=== PATIENT | male | born 1955 | race Caucasian/White ===

== ENCOUNTER 2024-03-21 09:09 | Outpatient (CLI) | payer MEDICARE ==
[2024-03-21] VITALS (16 sets, daily range): BP systolic 139–194; BP diastolic 87–100; PULSE 56–75; TEMP 97.7
[~2024-03-21] VITALS: Ht 180.3 cm; Wt 74.8 kg
[~2024-03-21 09:09] MED LIST: ALTACE 1.25MG1.25 MG PO; ASPIRIN E.C. 8181 MG PO; BRILINTA90 MG PO; EFFIENT10 MG PO; LIPITOR 40MG TA40 MG PO; LOPRESSOR 225 MG/TAB PO; NITROSTAT0.4 MG/TAB SL; NO HOME MEDICATIONS; NORCO 325 MG-51 TAB PO; TOPROL XL 50MG50 MG PO; ULTRAM 50MG TAB50 MG PO
[2024-03-21] MEDS ORDERED: LIPITOR 40MG TA40 MG PO (09:35)
[2024-03-21] MEDS ORDERED: TOPROL XL 50MG50 MG PO (09:36)
--- NOTE | 2024-03-21 10:15 | NUR ---
pt to ct per ambulation. Pt in prone position on ct table. Monitors applied and O2 on at 2l/nc.
[2024-03-21] MEDS ORDERED: Midazolam 2 MG/2 ML VIAL IV SCH (10:30)
[2024-03-21] MEDS ORDERED: fentaNYL 50 MCG/ML 2 ML VIAL IV SCH (10:30)
--- NOTE | 2024-03-21 10:30 | NUR ---
Dr Camacho into room and talking with pt.
--- NOTE | 2024-03-21 10:39 | NUR ---
Specimen obtained by Dr Medina and placed in formalin. Specimen labeled.
[2024-03-21] MEDS ORDERED: traMADol 50 MG TAB PO PRN (13:00)
--- NOTE | 2024-03-21 13:27 | NUR ---
Discharge instructions gien to pt.Pt verbalizes understanding.bandaid observed clean,dry,and intact.Pt escortedout via wheelchair by this nurse.
[2024-03-22] MEDS ORDERED: Atorvastatin 40 MG TAB PO SCH (09:00)
== END 2024-03-21 14:42 ==
LOC: COL.RAD 09:09
DX: R91.8 Other nonspecific abnormal finding of lung field (principal)
CPT/HCPCS: J2250; J3010

== ENCOUNTER 2024-04-09 17:19 | Emergency (ER) | payer MEDICARE ==
[~2024-04-09] VITALS: Ht 180.3 cm; Wt 75.0 kg
[2024-04-09 17:28] VITALS: TEMP 97.8
[2024-04-09] MEDS ORDERED: Heparin/D5W 250 ML IV SCH (18:00)
[2024-04-09] MEDS ORDERED: Heparin 5,000 UNITS/ML 1 ML VIAL IV ONE (18:00)
[2024-04-09] MEDS ORDERED: NS 1,000 ML IV ONE (18:00)
[2024-04-09] MEDS ORDERED: Heparin 5,000 UNITS/ML 1 ML VIAL IV PRN (18:00)
[2024-04-09] MEDS ORDERED: dilTIAZem 25 MG/5 ML VIAL IV ONE (18:15)
[2024-04-09 19:10] LABS: BASO % 0.2 % (0.0-2.0); EOS % 0.1 % (0.0-4.0); GRAN # 11.2 K/mm3 (1.4-6.5); GRAN % 81.5 % (42.2-75.2); HEMATOCRIT 45.3 % (42.0-52.0); LYMPH # 1.1 K/mm3 (1.2-3.4); LYMPH % 8.3 % (20.0-51.0); MEAN CELL VOLUME 97 fl (80.0-100.0); MEAN CORPUSCULAR HEMOGLOBIN 32 pg (27-31); MEAN CORPUSCULAR HGB CONC 33 g/dl (33.0-37.0); MEAN PLATELET VOLUME 10.6 fl (7.4-10.4); MONO # 1.3 K/mm3 (0.1-0.6); MONO % 9.5 % (1.7-9.3); PLATELET COUNT 231 K/mm3 (130-400); RED BLOOD COUNT 4.67 M/mm3 (4.20-5.60); REDCELL DISTRIBUTION WIDTH-CV 14.4 % (11.5-14.5)
[2024-04-09 19:18] LABS: INR 1.2 (0.8-3.0); PROTHROMBIN TIME 13.2 SECONDS (9.7-12.8)
[2024-04-09 19:20] LABS: PARTIAL THROMBOPLASTIN TIME 33.2 SECONDS (26.0-37.0)
[2024-04-09 19:26] LABS: ALBUMIN 3.2 g/dL (3.4-4.8); BILIRUBIN,TOTAL 0.4 mg/dL (0.2-1.2); CALCIUM 11.7 mg/dL (8.4-10.2); CREATININE, serum 0.85 mg/dL (0.72-1.25); MAGNESIUM 1.8 mg/dL (1.6-2.6); POTASSIUM 5.1 mEq/L (3.5-4.5); TOTAL PROTEIN 7.8 g/dl (6.2-8.1)
[2024-04-09 19:32] LABS: TROPONIN-I 0.028 ng/mL (0.00-0.033)
[2024-04-09] MEDS ORDERED: Sodium Zirconium Cyclosilicate for Oral Susp 10 GM PACKET PO ONE (20:00)
[2024-04-09] MEDS ORDERED: Sodium Bicarbonate 8.4% 50 MEQ/50 ML SYRINGE IV ONE (20:00)
[2024-04-09] MEDS ORDERED: Patiromer 8.4 G Oral Susp **** subs to Sodium Zirconium Cyclosilicate 10 G Oral Susp PO ONE (20:00)
[2024-04-09] MEDS ORDERED: HYDROcodone/Acetaminophen 7.5-325 MG TAB PO ONE (20:15)
[2024-04-09] MEDS ORDERED: ELIQUIS 5MG PO (21:25)
[2024-04-09] MEDS ORDERED: Apixaban 5 MG TABLET PO ONE (21:30)
[2024-04-09 21:36] VITALS: BP 149/95; PULSE 60
== END 2024-04-09 21:36 | disposition home or self-care (01) ==
LOC: COL.ER 17:19
PROVIDERS: Family Medicine
DX: I48.92 Unspecified atrial flutter (principal); C79.51 Secondary malignant neoplasm of bone; Z79.891 Long term (current) use of opiate analgesic
CPT/HCPCS: A9270

== ENCOUNTER 2024-04-30 11:53 | Inpatient (IN) | payer MEDICARE ==
[~2024-04-30] VITALS: Ht 177.8 cm; Wt 64.5 kg
[2024-04-30] VITALS (427 sets, daily range): BP systolic 88–123; BP diastolic 69–86; PULSE 50–55; TEMP 97.8–98.8; O2SAT 72–100
[~2024-04-30 11:53] MED LIST changes: +ELIQUIS 5MG PO; +TOPROL XL 25MG25 MG PO
[2024-04-30] MEDS ORDERED: NS 500 ML IV ONE ×2 (12:15→13:15)
[2024-04-30] MEDS ORDERED: Amiodarone 450 MG in D5W Excel 250 ML IV SCH ×2 (12:21→16:15)
[2024-04-30 12:30] LABS: HEMATOCRIT 45.3 % (42.0-52.0); HEMOGLOBIN 15.1 g/dl (13.5-18.0); MEAN CELL VOLUME 96 fl (80.0-100.0); MEAN CORPUSCULAR HEMOGLOBIN 32 pg (27-31); MEAN CORPUSCULAR HGB CONC 33 g/dl (33.0-37.0); MEAN PLATELET VOLUME 10.2 fl (7.4-10.4); PLATELET COUNT 152 K/mm3 (130-400); REDCELL DISTRIBUTION WIDTH-CV 15.2 % (11.5-14.5)
[2024-04-30 12:47] LABS: BAND 2 % (0-10); EOSINOPHIL 1 % (0-4); LYMPHOCYTE 5 % (20.0-51.0); NEUTROPHILS 87 % (42.0-75.2); PLATELET ESTIMATE NORMAL (NORMAL)
[2024-04-30 12:49] LABS: ALBUMIN 3.1 g/dL (3.4-4.8); BILIRUBIN,TOTAL 0.6 mg/dL (0.2-1.2); CALCIUM 9.5 mg/dL (8.4-10.2); CREATININE, serum 0.98 mg/dL (0.72-1.25); POTASSIUM 4.6 mEq/L (3.5-4.5); TOTAL PROTEIN 6.1 g/dl (6.2-8.1)
[2024-04-30 13:07] LABS: TROPONIN-I 0.155 ng/mL (0.00-0.033)
[2024-04-30 13:14] LABS: INR 1.3 (0.8-3.0); PROTHROMBIN TIME 14.5 SECONDS (9.7-12.8)
[2024-04-30] MEDS ORDERED: Heparin 5,000 UNITS/ML 1 ML VIAL IV ONE (13:15)
[2024-04-30] MEDS ORDERED: Heparin/D5W 250 ML IV SCH (13:15)
[2024-04-30] MEDS ORDERED: Heparin 5,000 UNITS/ML 1 ML VIAL IV PRN (13:15)
[2024-04-30 13:17] LABS: PARTIAL THROMBOPLASTIN TIME 26.7 SECONDS (26.0-37.0)
[2024-04-30] MEDS ORDERED: oxyCODONE 5 MG TAB PO PRN (16:15)
[2024-04-30] MEDS ORDERED: Acetaminophen 500 MG TAB PO SCH (16:15)
[2024-04-30] MEDS ORDERED: Ondansetron 4 MG/2 ML VIAL IV PRN (16:15)
[2024-04-30] MEDS ORDERED: Polyethylene Glycol 3350 17 GM PDS PO PRN (16:15)
[2024-04-30] MEDS ORDERED: Iohexol 300 - 100 ML VIAL IV ONE (18:24)
[2024-04-30] MEDS ORDERED: NS 100 ML IV ONE (18:25)
[2024-04-30] MEDS ORDERED: HYDROmorphone 0.5 MG/0.5 ML SYRINGE IV ONE (22:00)
[2024-05-01] VITALS (642 sets, daily range): BP systolic 117–130; BP diastolic 43–89; PULSE 46–49; TEMP 97.8–98; O2SAT 61–99
[2024-05-01 05:28] LABS: BASO % 0.2 % (0.0-2.0); GRAN # 5.5 K/mm3 (1.4-6.5); GRAN % 88.5 % (42.2-75.2); HEMATOCRIT 39.3 % (42.0-52.0); HEMOGLOBIN 13.6 g/dl (13.5-18.0); LYMPH # 0.3 K/mm3 (1.2-3.4); MEAN CELL VOLUME 94 fl (80.0-100.0); MEAN CORPUSCULAR HEMOGLOBIN 33 pg (27-31); MEAN CORPUSCULAR HGB CONC 35 g/dl (33.0-37.0); MEAN PLATELET VOLUME 10.5 fl (7.4-10.4); MONO # 0.4 K/mm3 (0.1-0.6); MONO % 5.8 % (1.7-9.3); PLATELET COUNT 124 K/mm3 (130-400); RED BLOOD COUNT 4.19 M/mm3 (4.20-5.60)
[2024-05-01 05:49] LABS: ALBUMIN 2.9 g/dL (3.4-4.8); BILIRUBIN,TOTAL 0.7 mg/dL (0.2-1.2); CALCIUM 8.9 mg/dL (8.4-10.2); CREATININE, serum 0.72 mg/dL (0.72-1.25); POTASSIUM 4.4 mEq/L (3.5-4.5); TOTAL PROTEIN 5.7 g/dl (6.2-8.1)
[2024-05-01 06:10] LABS: TSH w REFLEX 1.888 uIU/mL (0.350-4.940)
--- NOTE | 2024-05-01 07:00 | NUR ---
REPORT RECEIVED FROM APRIL KAMINSKI. PT RESTING IN BED, VSS ON 1L O2 PER NC. HEPARIN AND AMIO INFUSING ORDERED TO PERIPHERAL IV'S. PT DENIES NEEDS AT THIS TIME, CALL LIGHT IN REACH.
[2024-05-01] MEDS ORDERED: Atorvastatin 40 MG TAB PO SCH (09:00)
[2024-05-01] MEDS ORDERED: Influenza Virus Vaccine, Hi-Dose Triv '24-25 (65 YR+) 0.5 ML SYRINGE IM SCH (09:00)
--- NOTE | 2024-05-01 10:33 | NUR ---
RAMON and RAMON Reynolds met with patient to complete initial assessment for discharge planning. Patient verified that he lives in [place] alone, is normally independent with activities and uses no DME. He lists his daughter Sabina Pineda ([phone]) and son Gonzalez Conroy ([phone]) as his contacts. Patient states he has a DPOA completed listing the above children and his son Joseph as DPOA agents. Patient sees Dr. Squires as his PCP and uses [facility] pharmacy without difficulty. Patient has just completed radiation last week and was scheduled to start another treatment course today. Patient voiced anxiety related to not being able to start therapy. Plan at this time is for patient to return home at discharge. RAMON spoke with APRIL Arias who states she will contact Dr. Garcia's office regarding patient's new treatment. Discharge plan: Home
[2024-05-01] MEDS ORDERED: Apixaban 5 MG TABLET PO SCH (10:45)
[2024-05-01] MEDS ORDERED: Amiodarone 200 MG TAB PO SCH (10:45)
[2024-05-01] MEDS ORDERED: ELIQUIS 5MG PO (12:02)
[2024-05-01] MEDS ORDERED: PACERONE400 MG PO (12:02)
--- NOTE | 2024-05-01 13:14 | NUR ---
PT GIVEN DISCHARGE PACKET, ALL PRESCRIPTIONS AND INSTRUCTIONS REVIEWED W/ PT AND SIGNIFICANT OTHER. PT DC'D VIA WC IN STABLE CONDITION.
== END 2024-05-01 13:14 | disposition home or self-care (01) | DRG 309 ==
LOC: COL.ER 11:53 → ICU 13:58
PROVIDERS: Nurse Practitioner; ADMIT Internal Medicine
PROC: 5A2204Z Restoration of Cardiac Rhythm, Single (ICD-10-PCS; principal; 2024-04-30)
DX: I48.92 Unspecified atrial flutter (principal); C34.90 Malignant neoplasm of unspecified part of unspecified bronchus or lung; I10 Essential (primary) hypertension; E78.00 Pure hypercholesterolemia, unspecified; I25.10 Atherosclerotic heart disease of native coronary artery without angina pectoris; I48.91 Unspecified atrial fibrillation; R53.81 Other malaise; R79.89 Other specified abnormal findings of blood chemistry; I95.9 Hypotension, unspecified; Z87.891 Personal history of nicotine dependence; I25.2 Old myocardial infarction; Z79.82 Long term (current) use of aspirin; Z95.5 Presence of coronary angioplasty implant and graft; Z79.01 Long term (current) use of anticoagulants; Z79.899 Other long term (current) drug therapy; Z68.20 Body mass index [BMI] 20.0-20.9, adult; Z92.3 Personal history of irradiation
CPT/HCPCS: J0282; J1170; J1644; J2704; J7040; J7060; Q9967

== ENCOUNTER 2024-05-12 13:31 | Inpatient (IN) | payer MEDICARE ==
[~2024-05-12] VITALS: Ht 177.8 cm; Wt 74.3 kg
[~2024-05-12 13:31] MED LIST changes: +PACERONE400 MG PO
[2024-05-12 13:58] LABS: BASO % 0.4 % (0.0-2.0); EOS % 0.2 % (0.0-4.0); GRAN % 87.5 % (42.2-75.2); HEMATOCRIT 42.9 % (42.0-52.0); HEMOGLOBIN 14.8 g/dl (13.5-18.0); LYMPH # 0.2 K/mm3 (1.2-3.4); MEAN CELL VOLUME 94 fl (80.0-100.0); MEAN CORPUSCULAR HEMOGLOBIN 32 pg (27-31); MEAN CORPUSCULAR HGB CONC 35 g/dl (33.0-37.0); MEAN PLATELET VOLUME 9.7 fl (7.4-10.4); MONO # 0.5 K/mm3 (0.1-0.6); MONO % 8.5 % (1.7-9.3); PLATELET COUNT 208 K/mm3 (130-400); RED BLOOD COUNT 4.59 M/mm3 (4.20-5.60); REDCELL DISTRIBUTION WIDTH-CV 15.7 % (11.5-14.5)
[2024-05-12] MEDS ORDERED: Morphine 4 MG/ML VIAL IV ONE (14:00)
[2024-05-12] MEDS ORDERED: Ondansetron 4 MG/2 ML VIAL IV ONE (14:00)
[2024-05-12] MEDS ORDERED: NS 1,000 ML IV ONE (14:00)
[2024-05-12] MEDS ORDERED: Lidocaine 2% Viscous 15 ML UNIT DOSE MM ONE (14:00)
[2024-05-12 14:20] LABS: ALBUMIN 2.6 g/dL (3.4-4.8); BILIRUBIN,TOTAL 0.6 mg/dL (0.2-1.2); CALCIUM 9.3 mg/dL (8.4-10.2); CREATININE, serum 0.7 mg/dL (0.72-1.25)
[2024-05-12] MEDS ORDERED: Iohexol 300 - 100 ML VIAL IV ONE (15:46)
[2024-05-12] MEDS ORDERED: NS 100 ML IV SCH (15:47)
--- NOTE | 2024-05-12 16:30 | NUR ---
VITO ARRIVED TO UNIT AWAKE AND ALERT, ON 2LNC. PATIENT RATING HIS PAIN CURRENTLY 2/3 OUT OF 10, TO GENERALIZED BODY. PATIENT STATED HE HAS BEEN HAVIGN ISSUES SWALLOWING DUE TO PAIN. PATIENTS DAUGHTER AND SON AT BEDSIDE. CALL LIGHT WITHIN REACH. BED ALARM ON. MED REC COMPLETED WITH MADINA AND HIS TWO CHILDREN.
[2024-05-12 17:20] VITALS: BP_SYST 152
[2024-05-12] MEDS ORDERED: Pantoprazole 40 MG in NS 10 ML IV SCH (17:21)
[2024-05-12] MEDS ORDERED: Sucralfate Susp 1 GM/10 ML UD PO SCH (17:25)
[2024-05-12] MEDS ORDERED: LR 1,000 ML IV SCH (17:30)
[2024-05-12] MEDS ORDERED: Docusate Sodium 100 MG CAP PO PRN (17:30)
[2024-05-12] MEDS ORDERED: Polyethylene Glycol 3350 17 GM PDS PO PRN (17:30)
[2024-05-12] MEDS ORDERED: Morphine 4 MG/ML VIAL IV PRN (17:30)
[2024-05-12] MEDS ORDERED: Acetaminophen 325 MG TAB PO PRN (17:30)
[2024-05-12] MEDS ORDERED: Ondansetron 4 MG/2 ML VIAL IV PRN (17:30)
[2024-05-12] MEDS ORDERED: Lidocaine 2% Viscous 15 ML UNIT DOSE MM PRN (17:30)
[2024-05-12] MEDS ORDERED: hydrALAZINE 20 MG/ML 1 ML VIAL IV PRN (17:45)
--- NOTE | 2024-05-12 18:05 | NUR ---
FENTANYL PATCH TO L SHOULDER VERIFIED BY THIS RN AND APRIL Fuller FENTANYL PATCH STRENGTH OF 50MCG, AND PER PATIENT WAS PLACED TODAY AT 12PM.
[2024-05-12] MEDS ORDERED: KEYTRUDA25 MG/ML IV (20:11)
[2024-05-12 20:13] VITALS: BP 148/84; PULSE 52; TEMP 97.9
[2024-05-12] MEDS ORDERED: FENTANYL 50MCG TD (20:14)
--- NOTE | 2024-05-12 20:16 | NUR ---
MD MADE AWARE OF FENTANYL PATCH TO PATIENTS LEFT SHOULDER, PER PHYSICIAN WE CAN RESUME THIS FOR NOW.
[2024-05-12 20:30] VITALS: BP_SYST 148
--- NOTE | 2024-05-12 23:33 | NUR ---
Patient assessed around 2029. Alert and oriented, and able to make needs known. Denies having pain and discomfort. Peripheral INT to right AC, IV to left forearm with IV fluids running per orders. Reports SOB with exertion. On oxygen at 2 L/min via NC. LS coarse crackles. HRR-sinus rikki on telemetry. BSAx4. Has Fentanyl patch to left delt. Voices no questions, needs, or concerns at this time. In bed with call light within reach.
[2024-05-13] VITALS (12 sets, daily range): BP systolic 129–168; BP diastolic 78–94; PULSE 49–56; TEMP 97.7–98.1
--- NOTE | 2024-05-13 04:54 | NUR ---
68 yo male admitted with odynophagia/esophagitis as well as concerns for acute respiratory failure, possible sepsis from a pulmonary source. ht 177.8 cm wt 64.5 kg SCr 0.7 with estimated CrCl >60 ml/min half life 8.5 hours Plan: Patient received an initial loading dose of vancomycin 1000 mg x1 in the ED; will give a supplemental loading dose of vancomycin 500 mg for a total loading dose of 1500 mg (23.2 mg/kg);followed by a maintenance regimen of vancomycin 1250 mg q12h to target a goal trough of 15-20 mcg/ml. Will follow patient's renal function, micro data, and vancomycin levels as indicated to assess for any necessary changes to the regimen. Thank you for this dosing consult.
[2024-05-13] MEDS ORDERED: Vancomycin 1.25 GM,Special Dose/Pharmacy Prepared 1.25 GM in NS 250 ML IV SCH ×2 (05:00→08:00)
--- NOTE | 2024-05-13 06:00 | NUR ---
Patient given Lidocaine swish and swallow once this shift as requested. Has denied wanting any other pain medication. Continues on IV fluids and ABX per orders. Voices no questions, needs, or concerns at this time. Remains on oxygen at 2 L/min via NC. In bed with call light within reach.
[2024-05-13 06:13] LABS: BASO % 0.4 % (0.0-2.0); EOS % 0.6 % (0.0-4.0); GRAN # 4.1 K/mm3 (1.4-6.5); GRAN % 88.8 % (42.2-75.2); HEMATOCRIT 37.4 % (42.0-52.0); LYMPH # 0.1 K/mm3 (1.2-3.4); LYMPH % 2.1 % (20.0-51.0); MEAN CELL VOLUME 96 fl (80.0-100.0); MEAN CORPUSCULAR HEMOGLOBIN 32 pg (27-31); MEAN CORPUSCULAR HGB CONC 33 g/dl (33.0-37.0); MEAN PLATELET VOLUME 9.6 fl (7.4-10.4); MONO # 0.4 K/mm3 (0.1-0.6); MONO % 7.7 % (1.7-9.3); PLATELET COUNT 186 K/mm3 (130-400); RED BLOOD COUNT 3.91 M/mm3 (4.20-5.60)
[2024-05-13 06:20] LABS: HEMOGLOBIN 12.4 g/dl (13.5-18.0)
[2024-05-13 06:31] LABS: CALCIUM 8.5 mg/dL (8.4-10.2); CREATININE, serum 0.61 mg/dL (0.72-1.25); POTASSIUM 3.8 mEq/L (3.5-4.5)
[2024-05-13] MEDS ORDERED: Amiodarone 200 MG TAB PO SCH (09:00)
--- NOTE | 2024-05-13 09:21 | NUR ---
pick and shovel worker met with pt to discuss discharge planning. He reports to live alone in [place]. He sees Dr. Squires for PCP needs and obtains medications from [facility] with no difficulties. He verified to have Medicare A/B and [employer] insurance. He reports to be independent with ADLS and uses no DME. He reports his daughter, Sabina [phone] is his DPOA-HC along with his son and daughter has a copy. Pt's partner later arrived and had no questions for SW. PT/OT Pending Discharge Plan: home likely
[2024-05-13] MEDS ORDERED: Fluconazole 400 MG/200 ML IV SOLN IV ONE (10:00)
--- NOTE | 2024-05-13 21:25 | NUR ---
PATIENT RESTING IN BED WATCHING TV. REPORTS NERVE LANRE IN BOTH ARMS. DENIES ANY NAUSEA OR VOMITING. CONINUES O HAVE COUGH WITH THICK WHITE SPUTUM. CALL LIGHT WITHIN REACH. BED IS LOCKED AND IN LOW POSITION
[2024-05-14] VITALS (12 sets, daily range): BP systolic 145–164; BP diastolic 83–96; PULSE 46–50; TEMP 97.6–98.3
[2024-05-14 06:26] LABS: BASO % 0.2 % (0.0-2.0); EOS % 0.5 % (0.0-4.0); GRAN # 4.8 K/mm3 (1.4-6.5); HEMATOCRIT 39.4 % (42.0-52.0); HEMOGLOBIN 13.2 g/dl (13.5-18.0); LYMPH # 0.2 K/mm3 (1.2-3.4); LYMPH % 2.8 % (20.0-51.0); MEAN CELL VOLUME 94 fl (80.0-100.0); MEAN CORPUSCULAR HEMOGLOBIN 32 pg (27-31); MEAN CORPUSCULAR HGB CONC 34 g/dl (33.0-37.0); MEAN PLATELET VOLUME 9.3 fl (7.4-10.4); MONO # 0.6 K/mm3 (0.1-0.6); MONO % 9.8 % (1.7-9.3); PLATELET COUNT 175 K/mm3 (130-400); RED BLOOD COUNT 4.18 M/mm3 (4.20-5.60); REDCELL DISTRIBUTION WIDTH-CV 15.8 % (11.5-14.5)
[2024-05-14 06:44] LABS: CALCIUM 8.7 mg/dL (8.4-10.2); CREATININE, serum 0.8 mg/dL (0.72-1.25); POTASSIUM 3.7 mEq/L (3.5-4.5)
--- NOTE | 2024-05-14 08:10 | NUR ---
PATIENT ALERT AND ORIENTED X4. REPORTS PAIN 4/10 TO BACK REFUSES PAIN MEDICATION AT THIS TIME. PATIENT ON 4L /. PATIENT IV TO RIGHT AC WAS DISCONTINUED AND NEW IV PLACED TO RIGHT LEFT AC. PATIENT TELEMETRY INPLACE. PATIENT ASSISTED TO BATH BY THIS NURSE AND EDUCATIONAL ADVISOR. PATIENT MEPILEX PLACED ON RIGHT ELBOW.PATIENT DENIES ANY FURTHER NEEDS AT THIS TIME. CALL LIGHT WITHIN REACH. BED AT LOWEST POSITION. BED ALARM ON.
[2024-05-14] MEDS ORDERED: Fluconazole 200 MG/100 ML IV SOLN IV SCH (09:00)
--- NOTE | 2024-05-14 10:17 | NUR ---
RAMON met with pt, his son, and mickey Velasco to discuss PT/OT reccomendations. RAMON provided Medicare.gov list of SNF and Home Health options. He reports to want to go home with HH as his three children live nearby. RAMON urged him to call once they review the list and decide. Family inquired about d/c date and RAMON informed him the provider will be around shortly. Discharge Plan: home with HH- TBD
--- NOTE | 2024-05-14 13:00 | NUR ---
PATIENT CALORIE INTAKE FOR THIS MORNING AND LUNCH WAS APPROX. 301. CONSISTING OF INTAKE OF COFFEE WITH CREAMER, SUGAR, ORANGE JUICE, EGGS.
--- NOTE | 2024-05-14 13:06 | NUR ---
HOSPITALIST DR. BARBOUR NOTIFIED OF PATIENT INCREASE WORK OF BREATHING AND RESPITATION RATE INCREASE. DR. BARBOUR ORDERED THIS NURSE TO PLACE ABG ORDER AND NOTIFIED RESPIRATORY DON OF THIS ORDER.
[2024-05-14 13:38] LABS: ARTERIAL BLD GAS O2 SATURATION 94.3 % (92-100); ARTERIAL BLD GAS TCO2 CT 28.9; ARTERIAL BLOOD GAS BASE EXCESS 2.6 (-2-2); ARTERIAL BLOOD GAS HCO3 27.6 meq/L (22-26); ARTERIAL BLOOD GAS PCO2 43.8 mmHg (35-45); ARTERIAL BLOOD GAS PO2 70.2 mmHg (80-100); ARTERIAL BLOOD GAS pH 7.42 (7.35-7.45)
--- NOTE | 2024-05-14 18:00 | NUR ---
PATIENT IS HAVING POOR APPETITE THROUGHOUT SHIFT. PATIENT CALORIE INTAKE FOR THIS DAY SHIFT IS APPROX. 400 APOORVA WHICH CONSISTED OF SOME CEREAL WITH MILK, CHOCOLATE MILK, ESTONIAN ICE X2. AND SOME BITES OF FOOD FROM MEALS. THIS NURSE ENCOURAGE PATIENT ORAL INTAKE AND PATIENT EDUCATED ON ORAL INTAKE.
--- NOTE | 2024-05-14 19:45 | NUR ---
Patient resting in bed. Rates pain at 5/10, states this is normal for him. Needs met. Assessment complete. IV in left forearm and AC infusing without complications. Patient on 4L NC. Call light and personal items in reach. Bed in low position and bed alarm on.
[2024-05-15] VITALS (14 sets, daily range): BP systolic 141–163; BP diastolic 77–89; PULSE 45–61; TEMP 97.5–98.2
[2024-05-15 07:07] LABS: BASO % 0.2 % (0.0-2.0); EOS % 0.6 % (0.0-4.0); GRAN # 4.2 K/mm3 (1.4-6.5); GRAN % 84.7 % (42.2-75.2); HEMATOCRIT 37.2 % (42.0-52.0); HEMOGLOBIN 12.6 g/dl (13.5-18.0); LYMPH # 0.2 K/mm3 (1.2-3.4); LYMPH % 3.9 % (20.0-51.0); MEAN CELL VOLUME 95 fl (80.0-100.0); MEAN CORPUSCULAR HEMOGLOBIN 32 pg (27-31); MEAN CORPUSCULAR HGB CONC 34 g/dl (33.0-37.0); MEAN PLATELET VOLUME 10.2 fl (7.4-10.4); MONO # 0.5 K/mm3 (0.1-0.6); MONO % 9.8 % (1.7-9.3); PLATELET COUNT 181 K/mm3 (130-400); RED BLOOD COUNT 3.91 M/mm3 (4.20-5.60)
[2024-05-15 07:12] LABS: CALCIUM 8.5 mg/dL (8.4-10.2); CREATININE, serum 1.52 mg/dL (0.72-1.25); POTASSIUM 3.6 mEq/L (3.5-4.5)
--- NOTE | 2024-05-15 07:28 | NUR ---
DR. BENITEZ NOTIFIED OF CRITICAL LAB VALUE. PROVIDER VERBALIZED TO NOTIFY PHARMACY OF VANCO TROUGH. VANCO TROUGH WAS NOTIFIED TO PHARMACIST KAREEM,PHARMACIST VERBALIZED TO HOLD MORNING DOSE.
--- NOTE | 2024-05-15 08:00 | NUR ---
PATIENT ALERT AND ORIENTED X4.ON 3L 02/, TELEMETRY INPLACE. FLUIDS AND ANTIBIOTICS INFUSING PER DOCTORS ORDER. PATIENT DENIES PAIN THIS MORNING. PATIENT ASSISTED TO BATHROOM AND BACK TO BED.PATIENT BREAKFAST ORDERED. PATIENT DENIES ANY OTHER NEEDS AT THIS TIME. CALL LIGHT WITHIN REACH. BED ALARM ON.
[2024-05-15] MEDS ORDERED: fentaNYL Patch Removal/Drugbuster TD SCH (09:00)
[2024-05-15] MEDS ORDERED: fentaNYL 50 MCG 72 HR PATCH TD SCH (09:00)
--- NOTE | 2024-05-15 10:15 | NUR ---
Initial visit; A very soft-spoken, nice gentleman made several slightly humerous statements while Direct Marketing Executive was letting him know of her avaialbility and offer to help. Brian agrees to let all of us know if he has any needs while he is here with us. He has family support with him and they will also keep us posted of his needs.
--- NOTE | 2024-05-15 14:59 | NUR ---
Data Officer met with patient and his daughter, Amy to discuss Home Health and services included. Amy advised she is going to speak with some friends in healthcare about their HH recommendations and will call SW with what agency they decide on.
--- NOTE | 2024-05-15 17:58 | NUR ---
patient intake today was poor. patient educated on diet and offered multiple times snacks and things to eat but patient refused. patient had a few bites of breakfast, milk, and some drinks of drink brought by family. patient had a sprite and some orange juice, coffee with creamer.
--- NOTE | 2024-05-15 20:30 | NUR ---
Patient calorie count for dinner is 489.
--- NOTE | 2024-05-15 21:40 | NUR ---
Patient resting in bed. Rates pain at 5/10, denies need for any pain meds. Assissted patient to bathroom and back to bed. Assessment compelte. IV in left forearm and AC infusing without complications. Dressing to right elbow saturated, dressing changed. Call light and personal items in reach. Bed in low position and bed alarm on.
[2024-05-16] VITALS (13 sets, daily range): BP systolic 146–169; BP diastolic 83–94; PULSE 6–50; TEMP 97.5–97.9
[2024-05-16 06:38] LABS: BASO % 0.2 % (0.0-2.0); EOS % 0.9 % (0.0-4.0); GRAN # 3.8 K/mm3 (1.4-6.5); GRAN % 81.6 % (42.2-75.2); HEMATOCRIT 37.9 % (42.0-52.0); LYMPH # 0.3 K/mm3 (1.2-3.4); LYMPH % 5.4 % (20.0-51.0); MEAN CELL VOLUME 94 fl (80.0-100.0); MEAN CORPUSCULAR HEMOGLOBIN 32 pg (27-31); MEAN CORPUSCULAR HGB CONC 34 g/dl (33.0-37.0); MEAN PLATELET VOLUME 10.1 fl (7.4-10.4); MONO # 0.5 K/mm3 (0.1-0.6); PLATELET COUNT 176 K/mm3 (130-400); RED BLOOD COUNT 4.04 M/mm3 (4.20-5.60); REDCELL DISTRIBUTION WIDTH-CV 16.1 % (11.5-14.5)
[2024-05-16 06:54] LABS: CALCIUM 8.5 mg/dL (8.4-10.2); CREATININE, serum 1.61 mg/dL (0.72-1.25); POTASSIUM 3.4 mEq/L (3.5-4.5)
--- NOTE | 2024-05-16 07:30 | NUR ---
Bedside report received from APRIL Craft. Pt resting in bed with eyes closed and no complaints. Call light within reach.
--- NOTE | 2024-05-16 09:10 | NUR ---
Pt awake in bed with no complaints. Shift assessment completed. VSS with O2 in place via NC. No irritation to bilateral nares noted. Edema noted in shift assessment. Pt denies pain rating 0/10. IVF infusing into Lt AC with no complications. Zosyn infusing into Lt forearm as ordered with no complications. Telmetry in place. Pt ambulates to bathroom and back to bed x1 assist with no complications. NPO status in place. Pt has no request at this time. Call light within reach and fall precautions in place.
--- NOTE | 2024-05-16 09:12 | NUR ---
Fentanyl patch to RUE in place as ordered.
[2024-05-16] MEDS ORDERED: *Potassium Replacement Protocol MC SCH (10:45)
[2024-05-16] MEDS ORDERED: Potassium Chloride 100 ML IV SCH ×2 (10:45→17:15)
--- NOTE | 2024-05-16 15:10 | NUR ---
Kick Press Setter met with patient and family at bedside to check in. Patient will have feeding tube placed tomorrow. SW explained that she would order supplies from [facility] and patient verbalized understanding. Patient advised his daughter, Sabina is still working on a decision for .
--- NOTE | 2024-05-16 21:40 | NUR ---
Patient resting in bed. Rates pain at 5/10, denies any need for pain meds. Assisted patient to bathroom and back to bed. Needs met. Assessment complete. IV in right forearm flushes easily without complications. IV in right AC infusing without complications. Call light and personal items in reach. Bed in low position and bed alarm on.
[2024-05-17] VITALS (12 sets, daily range): BP systolic 147–171; BP diastolic 83–900; PULSE 49–61; TEMP 97.8–98.1
--- NOTE | 2024-05-17 07:22 | NUR ---
0715 - Spoke to patients nurse Livier this morning. Patient is not having surgery and no longer needs a PICC line. PICC order cancelled.
--- NOTE | 2024-05-17 07:29 | NUR ---
Bedside report received from APRIL Craft. Pt awake in bed with no complaints. Fentanyl patch to RUE verified with APRIL Craft. Call light within reach.
[2024-05-17 10:50] LABS: BASO % 0.1 % (0.0-2.0); EOS % 0.1 % (0.0-4.0); GRAN # 6.6 K/mm3 (1.4-6.5); GRAN % 88.7 % (42.2-75.2); HEMATOCRIT 45.5 % (42.0-52.0); LYMPH # 0.3 K/mm3 (1.2-3.4); LYMPH % 3.6 % (20.0-51.0); MEAN CELL VOLUME 94 fl (80.0-100.0); MEAN CORPUSCULAR HEMOGLOBIN 32 pg (27-31); MEAN CORPUSCULAR HGB CONC 34 g/dl (33.0-37.0); MEAN PLATELET VOLUME 9.8 fl (7.4-10.4); MONO # 0.5 K/mm3 (0.1-0.6); MONO % 6.2 % (1.7-9.3); PLATELET COUNT 223 K/mm3 (130-400); RED BLOOD COUNT 4.82 M/mm3 (4.20-5.60); REDCELL DISTRIBUTION WIDTH-CV 16.3 % (11.5-14.5)
[2024-05-17 11:02] LABS: CALCIUM 8.9 mg/dL (8.4-10.2); CREATININE, serum 1.5 mg/dL (0.72-1.25); HEMOGLOBIN 15.4 g/dl (13.5-18.0); MAGNESIUM 1.5 mg/dL (1.6-2.6); PHOSPHOROUS 2.9 mg/dL (2.3-4.7); POTASSIUM 3.7 mEq/L (3.5-4.5)
[2024-05-17] MEDS ORDERED: Magnesium Sulfate 8% 50 ML IV ONE (11:45)
--- NOTE | 2024-05-17 12:00 | NUR ---
Pt awake in bed with no complaints. Shift assessment completed. VSS. RUE edema noted with weeping at IV insertion sites. Dr. Munson aware of edema throughout pt body. IVF on hold at this time. ALIA wraps applied to BLE due to +2 edema. AIVS APRIL Mark notified of needing PICC placement per Dr. Munson. APRIL Mark then notified this nurse that PICC insertion attempt unsuccessful due to edema. Dr. Munson instructed this nurse to consult surgeron for central line placement. Dr. Olguin notified by phone of consult. Telemetry in place. VSS with O2 in place via NC. Pt ambulates x1 assist with no complications to bathroom and back to bed. Family at bedside. Pt has no request at this time. Call light within reach.
--- NOTE | 2024-05-17 14:10 | NUR ---
Family requesting to speak with hospitalist. Dr. Munson notified by phone of family request.
--- NOTE | 2024-05-17 14:53 | NUR ---
TORB per Dr. Munson to retime IV Magnesium from 1145 to 1999 due to not having IV acces at this time.
[2024-05-17] MEDS ORDERED: Potassium Bicarbonate/Citrate 20 MEQ Effervescent TAB PO SCH (15:00)
--- NOTE | 2024-05-17 15:40 | NUR ---
Filter Press Operator spoke with Harvinder who advised plan for patient's feeding tube has been delayed at this time. SW met with patient and his family to follow up on Home Health. No decision was made for agency at this time.
[2024-05-17] MEDS ORDERED: Albumin (Human) 100 ML IV ONE (19:30)
[2024-05-17] MEDS ORDERED: Magnesium Sulfate 8% 50 ML IV SCH (20:00)
--- NOTE | 2024-05-17 20:10 | NUR ---
Patient resting in bed. Rates pain at 5/10, denies need for pain meds at this time. Needs met. Assessment complete. Fentynall patch to right upper arm in place. Right IJ flushes easily with good blood return from white and blue port. Brown port infusing without complications. Call light and personal items in reach. Bed in low position and bed alarm on.
--- NOTE | 2024-05-17 20:48 | NUR ---
LR decreased to 50mL/hr at this time per order.
--- NOTE | 2024-05-17 22:50 | NUR ---
Dressing to right IJ saturated. Dressing changed at this time using sterile technique. No complications. Patient tolerated well.
[2024-05-18] VITALS (11 sets, daily range): BP systolic 157–170; BP diastolic 79–90; PULSE 46–50; TEMP 97.7–98.5
--- NOTE | 2024-05-18 01:25 | NUR ---
Dressing to right IJ saturated. Dressing changed using sterile technique. No complications and patient tolerated it well. Hospitalist TRAVIS Hensley called and notified of bleeding from right IJ and when dressings have needed to be changed. New orders, see MAR.
[2024-05-18 07:02] LABS: MAGNESIUM 2.2 mg/dL (1.6-2.6); PHOSPHOROUS 2.1 mg/dL (2.3-4.7)
[2024-05-18 07:05] LABS: ALBUMIN 2.2 g/dL (3.4-4.8); BILIRUBIN,TOTAL 0.3 mg/dL (0.2-1.2); CALCIUM 8.5 mg/dL (8.4-10.2); CREATININE, serum 1.33 mg/dL (0.72-1.25); POTASSIUM 3.4 mEq/L (3.5-4.5); TOTAL PROTEIN 4.5 g/dl (6.2-8.1)
--- NOTE | 2024-05-18 08:15 | NUR ---
Bedside report received from APRIL Craft. Pt resting in bed awake with no complaints. Fentanyl patch verified with APRIL Craft on RUE. Call light within reach.
[2024-05-18] MEDS ORDERED: Albumin (Human) 100 ML IV ONE (08:30)
[2024-05-18] MEDS ORDERED: Potassium Phoshate 40 MM in NS 250 ML IV SCH (09:30)
--- NOTE | 2024-05-18 11:59 | NUR ---
Pt awake in bed with no complaints. RIJ central line dressing saturated with bright red blood. Sterile dressing change performed, pt tolerated well with no complaints. Shift assessment completed. VSS with O2 in place. Skin behind ears and bilateral nares intact. Edema to BLE and BUE noted in process intervention. Telemetry in place. Mepilex to Rt elbow in place. Fentanyl patch to RUE disposed in drug buster with charge nurse Salma as witness. New fentanyl patch placed to Lt upper back with APRIL Banegas at bedside to witness. Pt has no request at this time. Call light within reach.
--- NOTE | 2024-05-18 15:13 | NUR ---
Notified Dr. Olguin that pt Rt IJ dressing continues to saturate with bright red blood. Dressing has been changed x2 during this shift. Dr. Olguin instructed this nurse to apply surgicell to insertion site during next dressing change to assist with bleeding control.
--- NOTE | 2024-05-18 23:00 | NUR ---
Scheduled PO med administered per OCT. IV medications administered by RN. Shift assessment complete. BLE and BUE are edematous pitting +1. Hands are edamatous as well pitting +2. Pt. is dyspneic w/ exertion. Upon auscultation MAR upper lobes are clear. Lung sounds are course over Rt. lower lobe and diminished over Lt. lower lobe. Abdomen is rounded and firm. Bowel sounds are audible in all quadrants. Pt. endorses passing flatus and denies N/V. BUE are dry and flaking. Small abrasion to Rt. elbow dressed w/ mepilex. Noted shadowing to dressing. Pt. reports 6/10 pain and states this is "tolerable." Fentanyl patch to Lt. upper back in place. Dressing over Rt. IJ is saturated with bloody drainage. Per bedside shift report, there has been leaking at IJ insertion site since it was placed. Dressing changed per sterile technique under RN supervision. Pt. tolerated procedure well. No further outstanding findings. Pt. denies needs or requests. Call light in reach.
[2024-05-19] VITALS (12 sets, daily range): BP systolic 162–185; BP diastolic 79–95; PULSE 45–53; TEMP 97.6–98.1
--- NOTE | 2024-05-19 02:51 | NUR ---
park maintenance technician called to report pt. was not showing on mechanical development engineer. Leads checked and battery changed. Pt. showing on telemetry. Pt. resting in bed w/ eyes closed- respirations even and unlabored.
--- NOTE | 2024-05-19 04:40 | NUR ---
Pt. denied complaints or requests throughout the evening. Small amount of shadowing to Rt. IJ dressing. Pt. resting in bed w/ call light in reach and fall precautions in place.
[2024-05-19 06:22] LABS: BASO % 0.2 % (0.0-2.0); EOS % 0.7 % (0.0-4.0); GRAN # 4.7 K/mm3 (1.4-6.5); LYMPH # 0.2 K/mm3 (1.2-3.4); LYMPH % 3.9 % (20.0-51.0); MEAN CELL VOLUME 95 fl (80.0-100.0); MEAN CORPUSCULAR HGB CONC 33 g/dl (33.0-37.0); MEAN PLATELET VOLUME 10.2 fl (7.4-10.4); MONO # 0.4 K/mm3 (0.1-0.6); MONO % 7.5 % (1.7-9.3); PLATELET COUNT 205 K/mm3 (130-400); REDCELL DISTRIBUTION WIDTH-CV 16.2 % (11.5-14.5)
[2024-05-19 06:41] LABS: CALCIUM 8.4 mg/dL (8.4-10.2); CREATININE, serum 1.14 mg/dL (0.72-1.25); MAGNESIUM 1.9 mg/dL (1.6-2.6); PHOSPHOROUS 2.7 mg/dL (2.3-4.7)
[2024-05-19 06:50] LABS: HEMATOCRIT 33.4 % (42.0-52.0); MEAN CORPUSCULAR HEMOGLOBIN 31 pg (27-31)
--- NOTE | 2024-05-19 07:14 | NUR ---
electrical mechanical technician called for lead check. Assessed pt- no signs of distress. Leads checked and pt returned to order taker. information technology director called to report hgb delta change. Hospitalist, Arpit, notified. No new orders received.
[2024-05-19] MEDS ORDERED: Potassium Bicarbonate/Citrate 20 MEQ Effervescent TAB PO SCH ×2 (08:00→20:00)
--- NOTE | 2024-05-19 08:30 | NUR ---
PATIENT RESTING IN BED. MORNING MEDICATIONS ADMINISTERED PER eMAR. PATIENT CURRENTLY ON 3L O2 VIA NC. RIJ FLUSHES AND HAS BLOOD RETURN. PATIENT UPDATED ON PLAN FOR THE DAY. DENIES ANY NEEDS AT THIS TIME. CALL LIGHT WITHIN REACH, BED ALARM IN PLACE. WILL CONTINUE TO MONITOR.
[2024-05-19] MEDS ORDERED: Albumin (Human) 100 ML IV ONE (16:15)
--- NOTE | 2024-05-19 23:31 | NUR ---
Patient assessed around 2034. Alert and oriented, and able to make needs known. Denies having pain and discomfort. Has Fentanyl patch to left shoulder blade. TLC to right IJ. Site has drainage, no active bleeding noted. Denies SOB and dyspnea. On oxygen at 3 L/min via NC. HRR. Telemetry in place, sinus rikki. BSAx4. Has edema to BUE and BLE. ALIA wrap to areas to see if compression helps with swelling. Voices no questions, needs, or concerns at this time. Aware of plan of being NPO after midnight for peg tube placement tomorrow. In bed with call light within reach. High fall risk precautions in place. Bed alarm on.
[2024-05-20] VITALS (10 sets, daily range): BP systolic 164–180; BP diastolic 80–90; PULSE 48–60; TEMP 97.7–98.5
--- NOTE | 2024-05-20 05:49 | NUR ---
Patient has denied needing any PRN medications for pain during the night. Received IV ABX per orders. Continues on oxygen at 3 L/min via NC. Voices no questions, needs, or concerns at this time. In bed with call light within reach. High fall risk precautions in place. Bed alarm on.
[2024-05-20 07:11] LABS: CALCIUM 8.5 mg/dL (8.4-10.2); CREATININE, serum 1.07 mg/dL (0.72-1.25); MAGNESIUM 1.9 mg/dL (1.6-2.6); PHOSPHOROUS 2.1 mg/dL (2.3-4.7)
[2024-05-20] MEDS ORDERED: Potassium Chloride 100 ML IV SCH (08:00)
--- NOTE | 2024-05-20 08:33 | NUR ---
PAIENT RESTING IN BED UPON ENTERING ROOM. MORNING MEDICATIONS ADMINISTERED PER eMAR. PATIENT ROPERTS MILD GENERALIZED PAIN. CURRENTLY ON 3L O2 VA NC, SUCTIONING THIN WHITE SECRETIONS. CENTRAL LINE FLUSHES AND HAS BLOOD RETURN. UPDATED ON PLAN OF CARE. PATIENT REMAINS NPO FOR PEG TUBE PLACMENT. CALL LIGHT WITHIN REACH, BED ALARM IN PLACE. WILL CONTINUE TO MONITOR.
[2024-05-20] MEDS ORDERED: POTASSIUM PHOSHATE IV ONE (12:00)
[2024-05-20] MEDS ORDERED: NS IV ONE (12:00)
[2024-05-20] MEDS ORDERED: [UNRECOGNIZED DRUG - OTHER] IV ONE (12:00)
--- NOTE | 2024-05-20 15:16 | NUR ---
Typist attended multi-disciplinary meeting to discuss discharge planning. Patient to have PEG tube placed tomorrow and plan is for Home with HH.
--- NOTE | 2024-05-20 23:40 | NUR ---
PATIENT RESTING IN BED WATCHING TV. REPORTING NERVE PAIN IN BILATERAL ARMS, RATING 5/10. CONTINUING TO USE SUCTION FOR HIS SECRETIONS. ALIA BANDAGES PRESENT ON BILATERAL LOWER EXTREMITIES WITH +2 EDEMA PRESENT BILATERALLY. CALL LIGHT WITHIN REACH. BED IS LOCKED AND IN LOW POSITION WITH BED ALARM ON.
[2024-05-21] VITALS (16 sets, daily range): BP systolic 159–186; BP diastolic 58–89; PULSE 51–58; TEMP 97.5–98.1
[2024-05-21] MEDS ORDERED: LR 1,000 ML IV SCH (05:00)
--- NOTE | 2024-05-21 06:55 | NUR ---
appears to be sleeping, resp quiet and easy, bedside shift report received from APRIL Rico
--- NOTE | 2024-05-21 08:37 | NUR ---
resting in bed with eyes closed, arouses and patient denies needs or c/os at this time
[2024-05-21 09:11] LABS: CALCIUM 8.6 mg/dL (8.4-10.2); CREATININE, serum 1.01 mg/dL (0.72-1.25); MAGNESIUM 1.7 mg/dL (1.6-2.6); POTASSIUM 3.1 mEq/L (3.5-4.5)
[2024-05-21] MEDS ORDERED: Potassium Chloride 20 mEq/100 mL IV Soln IV SCH (09:30)
[2024-05-21] MEDS ORDERED: Magnesium Sulfate 4% 50 ML IV ONE (09:30)
--- NOTE | 2024-05-21 12:11 | NUR ---
resting in bed visiting with and family, denies needs
[2024-05-21] MEDS ORDERED: [UNRECOGNIZED DRUG - OTHER] IV ONE (13:00)
[2024-05-21] MEDS ORDERED: NS IV ONE (13:00)
[2024-05-21] MEDS ORDERED: POTASSIUM PHOSHATE IV ONE (13:00)
--- NOTE | 2024-05-21 13:14 | NUR ---
SBP 186, medicated with apresoline 10mg slow IV
--- NOTE | 2024-05-21 14:10 | NUR ---
consent for procedure and anesthesia signed by SUSIE caraballo
--- NOTE | 2024-05-21 15:39 | NUR ---
to OR per bed, report called to JOSELIN Bran, reported his lab values, and that he has on a fentanyl patch, and LR infusing per gravity into RIJ
--- NOTE | 2024-05-21 15:41 | NUR ---
called APRIL Rivashemodialysis charge nurse nurse in OR and reported had not checked for patient having jewelry or removing his glasses
--- NOTE | 2024-05-21 16:29 | NUR ---
remains in surgery
[2024-05-21] MEDS ORDERED: Lidocaine PF 2% (20 MG/ML) 5 ML VIAL ONE (16:39)
--- NOTE | 2024-05-21 17:15 | NUR ---
returned to room from surgery per bed, awake and alert, IV infusing and stopped, potassium phosphate restarted to finish, PEG tube in place and abdominal binder in place, patient denies pain or needs and family at bedside
--- NOTE | 2024-05-21 17:30 | NUR ---
O2 sat is 91% on 2L, O2 increased to 3L
--- NOTE | 2024-05-21 18:36 | NUR ---
appears to be sleeping, resp quiet and easy
--- NOTE | 2024-05-21 18:56 | NUR ---
bedside shift report given to APRIL Rico
--- NOTE | 2024-05-21 22:20 | NUR ---
PATIENT RESTING IN BED. CURRENTLY ON 3L O2 VIA NASAL CANNULA. GIVEN DINNER AFTER 2200 AND IS STARTING TO EAT. REPORTS PAIN AT PEG TUBE INSERTION SITE, RATED 5/10. CALL LIGHT WITHIN REACH. BED IS LOCKED AND IN LOW POSITION.
[2024-05-22] VITALS (12 sets, daily range): BP systolic 158–179; BP diastolic 82–93; PULSE 53–60; TEMP 97.6–98.4
[2024-05-22 07:36] LABS: BASO % 0.4 % (0.0-2.0); EOS # 0.1 K/mm3 (0.0-0.7); EOS % 0.7 % (0.0-4.0); GRAN # 6.4 K/mm3 (1.4-6.5); GRAN % 88.5 % (42.2-75.2); HEMOGLOBIN 11.9 g/dl (13.5-18.0); LYMPH # 0.2 K/mm3 (1.2-3.4); LYMPH % 2.9 % (20.0-51.0); MEAN CELL VOLUME 93 fl (80.0-100.0); MEAN CORPUSCULAR HEMOGLOBIN 32 pg (27-31); MEAN CORPUSCULAR HGB CONC 34 g/dl (33.0-37.0); MEAN PLATELET VOLUME 10.3 fl (7.4-10.4); MONO # 0.5 K/mm3 (0.1-0.6); MONO % 6.9 % (1.7-9.3); PLATELET COUNT 250 K/mm3 (130-400); RED BLOOD COUNT 3.71 M/mm3 (4.20-5.60); REDCELL DISTRIBUTION WIDTH-CV 16.4 % (11.5-14.5)
[2024-05-22 07:46] LABS: HEMATOCRIT 34.6 % (42.0-52.0)
[2024-05-22 07:59] LABS: CALCIUM 8.6 mg/dL (8.4-10.2); CREATININE, serum 1.01 mg/dL (0.72-1.25); MAGNESIUM 1.8 mg/dL (1.6-2.6); PHOSPHOROUS 2.2 mg/dL (2.3-4.7); POTASSIUM 3.2 mEq/L (3.5-4.5)
[2024-05-22] MEDS ORDERED: Apixaban 5 MG TABLET PO SCH (09:00)
[2024-05-22] MEDS ORDERED: Lisinopril 5 MG TAB PO SCH (10:00)
[2024-05-22] MEDS ORDERED: NS IV ONE (11:00)
[2024-05-22] MEDS ORDERED: [UNRECOGNIZED DRUG - OTHER] IV ONE (11:00)
[2024-05-22] MEDS ORDERED: POTASSIUM PHOSHATE IV ONE (11:00)
[2024-05-22] MEDS ORDERED: Potassium Bicarbonate/Citrate 20 MEQ Effervescent TAB PO SCH (11:15)
[2024-05-22] MEDS ORDERED: Dextrose (Glucose) 15 GM (4 x 3.75 GM) Chewable TABLET PACK PO PRN (12:30)
[2024-05-22] MEDS ORDERED: Glucagon 1 MG VIAL IM PRN (12:30)
[2024-05-22] MEDS ORDERED: Dextrose 50% Water 25 GM/50 ML SYRINGE IV PRN (12:30)
--- NOTE | 2024-05-22 13:31 | NUR ---
Patient awake, alert and oriented. Denies pain, nausea or shortness of breath. Abdominal binder in place, PEG tube inserted yesterday, awaiting clearance from surgery to start tube feeds. RIJ in place, blood return from all ports. Bed in lowest position with call light within reach.
--- NOTE | 2024-05-22 15:17 | NUR ---
[employer] faxed referral and order for tube feed and supplies to [facility].
[2024-05-22] MEDS ORDERED: Insulin Lispro (HumaLOG) SQ SCH (18:00)
--- NOTE | 2024-05-22 22:16 | NUR ---
PATIENT RESTING IN BED WATCHING TV. TOLERATED HS TUBE FEEDING WELL. DENIES ANY NAUSEA OR ABDOMINAL PAIN. ASSISTED TO RESTROOM AND RETURNED TO BED. CALL LIGHT WITHIN REACH. BED IS LOCKED AND IN LOW POSITION WITH BED ALARM ON.
[2024-05-23] VITALS (12 sets, daily range): BP systolic 139–170; BP diastolic 53–88; PULSE 52–72; TEMP 97.6–988.2
[2024-05-23 06:33] LABS: CALCIUM 8.1 mg/dL (8.4-10.2); CREATININE, serum 0.93 mg/dL (0.72-1.25); MAGNESIUM 1.6 mg/dL (1.6-2.6); PHOSPHOROUS 2.2 mg/dL (2.3-4.7)
[2024-05-23] MEDS ORDERED: Potassium Bicarbonate/Citrate 20 MEQ Effervescent TAB PO SCH (07:30)
--- NOTE | 2024-05-23 08:00 | NUR ---
Patient awake, alert and oriented. Tube feed this AM, tolerated well, denies pain or nausea. Wants to discuss plan of tube feed with supply chain vice president. Will educate patient on tube feeds throughout the day, will plan to have pt administer his own feed for the rest of the day. Bed in lowest position with call light within reach.
[2024-05-23] MEDS ORDERED: Lisinopril 5 MG TAB PO ONE (09:30)
[2024-05-23] MEDS ORDERED: Magnesium Sulfate 4% 50 ML IV ONE (11:45)
--- NOTE | 2024-05-23 14:00 | NUR ---
Educated pt on tube feed administration, this RN verbally explained the procedure as the patient performed it himself. Patient was able to correctly measure out tube feed and water amounts, clamp and unclamp tube, occasionally needed assistance opening bottles and caps. Pt agreeable to plan to perform his tube feeds himself with the assistance of nursing staff while here prior to discharge.
--- NOTE | 2024-05-23 16:32 | NUR ---
Call Worker Person met with patient to present IM. Patient's fiance and son, Pawel are at bedside. Patient verbalized understanding and requested Pawel sign on his behalf. RAMON placed form in chart and provided copy to patient. Patient stated his daughter, Amy will contact RAMON with a final decision on Home Health. RAMON spoke with RN, Tianna who advised training for tube feeds have gone well. RAMON contacted [facility] and faxed orders and nutrition notes. Discharge Plan; Home with
--- NOTE | 2024-05-23 21:23 | NUR ---
PATIENT RESTING IN BED WITH EYES CLOSED. REFUSING TUBE FEED, STATES SINCE DINNER WAS LATE AND HE DID NOT FINISH EATING UNTIL 1999 HE IS TOO FULL FOR THE TUBE FEED. RN PROVIDED EDUCATION AND ADVISED PATIENT TO CALL WHEN HE'S FEELING LESS FULL. CONTINUES TO REPORT PAIN IN BILATERAL ARMS WHICH ARE ELEVATED ON PILLOWS. CALL LIGHT WITHIN REACH. BED IS LOCKED AND IN LOW POSITION.
[2024-05-24] VITALS (12 sets, daily range): BP systolic 116–170; BP diastolic 79–91; PULSE 49–66; TEMP 97.5–98.8
[2024-05-24] MEDS ORDERED: Melatonin 3 MG TAB PO PRN (00:15)
[2024-05-24 07:04] LABS: CALCIUM 8.7 mg/dL (8.4-10.2); CREATININE, serum 0.99 mg/dL (0.72-1.25); MAGNESIUM 1.9 mg/dL (1.6-2.6); PHOSPHOROUS 2.2 mg/dL (2.3-4.7); POTASSIUM 3.5 mEq/L (3.5-4.5)
--- NOTE | 2024-05-24 08:00 | NUR ---
PT SLEEPING IN BED, EASILY AROUSED. SCHEDULED MEDS GIVEN PER eMAR. REMOVED FENTANYL PATCH FROM LEFT SHOULDER AND APPLIED NEW ONE TO RIGHT SHOULDER. DRESSING ON RIGHT ELBOW WAS COMPLETELY SATURATED. WOUND ON R ELBOW DRAINING SEROSAGINOUS FLUID AND LEAKING THROUGH DRESSING AND PILLOWCASE SUPPORTING EXTREMITY. REMOVED ALIA WRAPS FROM BLE. SWELLING EXISTS IN UPPER ARTEAGA AND FEET. PT INDEPENDENTLY USING SUCTION DURING ASSESSMENT. STATES HE DID NOT SLEEP WELL LAST NIGHT AND WANTS TO WAIT TO EAT MEAL ORALLY. THIS NURSE EDUCATED PT ON DELAYING MEALS AND TUBE FEEDING TIMES. PT UNDERSTOOD RISKS AND STILL WANTED TO WAIT. PEG TUBE HAD SOME DRIED DRAINAGE AROUND IT. DRAIN SPONGE REPLACED. PT C/O SOME TENSION ON THE TUBE. THIS NURSE EXPLAINED THAT IT IS NORMAL SCAR TISSUE FORMS AROUND THE INCISION AND STATED IF IT GETS WORSE TO NOTIFY. ALL QUESTIONS ANSWERED. ALL NEEDS MET. NO FURTHER CONCERNS AT THIS TIME. FALL PRECAUTIONS IN PLACE.
[2024-05-24] MEDS ORDERED: Lisinopril 10 MG TAB PO SCH (09:00)
[2024-05-24] MEDS ORDERED: Potassium Bicarbonate/Citrate 20 MEQ Effervescent TAB PO SCH (10:30)
[2024-05-24] MEDS ORDERED: *Potassium Replacement Protocol MC SCH (10:30)
--- NOTE | 2024-05-24 15:41 | NUR ---
PT ON RA APPROX 5 MINUTES WITH SPO2 86% O2 BACK ON @ 2 LPM SPO2 92 WITH FAIRLY RAPID RECOVERY.
--- NOTE | 2024-05-24 16:47 | NUR ---
Bow Rehairer met with patient and his daughter, Amy to review discharge plan. SW did ask patient if he still feels good about discharge home or if he was interested in looking into SNF. Patient did not want SNF. RAMON advised discharge could possibly occur tomorrow depending on how the night goes. Patient will need two liters of oxygen and would like to order it from [facility] as that is where his feeding supplies are ordered from. Amy stated [facility] could coordinate with her on home delivery. Amy also stated they decided on [facility] services. RAMON contacted Olayinka at [facility] and faxed referral to the office. RAMON spoke with [facility] and sent referral/order for oxygen. Charu at [facility] plans to call daughter janes to coordinate delivery for the oxygen and feeding supplies. Discharge Plan: Home with [facility], feeding tube, and new home oxygen
[2024-05-25] VITALS (12 sets, daily range): BP systolic 142–196; BP diastolic 81–99; PULSE 50–67; TEMP 97.4–99.1
[2024-05-25 06:42] LABS: CALCIUM 8.3 mg/dL (8.4-10.2); CREATININE, serum 0.92 mg/dL (0.72-1.25); PHOSPHOROUS 2.8 mg/dL (2.3-4.7); POTASSIUM 3.3 mEq/L (3.5-4.5)
[2024-05-25 06:56] LABS: MAGNESIUM 1.7 mg/dL (1.6-2.6)
[2024-05-25] MEDS ORDERED: Potassium Bicarbonate/Citrate 20 MEQ Effervescent TAB PO SCH (08:15)
--- NOTE | 2024-05-25 08:45 | NUR ---
PATIENT ALERT AND ORIENTED X4. ON 2L /. PATIENT REPORTS GENERALIZED PAIN RATING IT AT A 4/10. DOES NOT WANT PAIN MEDICATION AT THIS TIME. PATIENT HAS BUE EDEMA. PATIENT HAS A PEG TUBE FOR INTERMITTEN SUPPLEMENTAL FEEDINGS. PATIENT DENIES ANY OTHER NEEDS AT THIS TIME. CALL LIGHT WITHIN REACH. BED AT LOWEST POSITION. BED ALARM ON.
[2024-05-25] MEDS ORDERED: hydroCHLOROthiazide 12.5 MG CAP PO SCH (12:17)
--- NOTE | 2024-05-25 15:14 | NUR ---
SW recieved notification from hospitalist that patient will not be discharging today.
[2024-05-26] VITALS (11 sets, daily range): BP systolic 134–196; BP diastolic 75–96; PULSE 49–59; TEMP 98.1–99.3
[2024-05-26] MEDS ORDERED: hydrALAZINE 20 MG/ML 1 ML VIAL IV PRN (00:30)
[2024-05-26] MEDS ORDERED: Melatonin 3 MG TAB PO ONE (01:00)
[2024-05-26 06:41] LABS: CALCIUM 8.3 mg/dL (8.4-10.2); CREATININE, serum 0.87 mg/dL (0.72-1.25); MAGNESIUM 1.6 mg/dL (1.6-2.6); PHOSPHOROUS 3.3 mg/dL (2.3-4.7); POTASSIUM 3.1 mEq/L (3.5-4.5)
--- NOTE | 2024-05-26 08:50 | NUR ---
PATIENT ALERT AND ORIENTED X4. REPORTS GENERALIZED PAIN AND BACK PAIN. REFUSES PAIN MEDICATION AT THIS TIME. PATIENT ON 2L 02/. TELEMETRY MONITORING INPLACE. GENERAL DIET AND INTERMITTEN TUBE SUPPLEMENT FEEDS. PATIENT DENIES FURTHER NEEDS AT THIS TIME. CALL LIGHT WITHIN REACH. BED ALARM ON.
--- NOTE | 2024-05-26 08:52 | NUR ---
PATIENT WAS OFFERED TO DO TUBE FEEDING AT HIS TIME. PATIENT REFUSED TO DO TUBE FEEDING AT THIS TIME AND VERBALIZED TO COME AT A DIFFERENT TIME. CALL LIGHT WITHIN REACH. BED AT LOWEST POSITION.
--- NOTE | 2024-05-26 10:45 | NUR ---
PATIENT REFUSED TUBE FEEDING. WOULD LIKE TO DO THE MORNING FEEDING AT ANOTHER TIME AFTER LUNCH. CALL LIGHT WITHIN REACH. BED AT LOWEST POSITION.
[2024-05-26] MEDS ORDERED: Magnesium Sulfate 4% 50 ML IV ONE (16:00)
[2024-05-27 05:15] VITALS: BP 153/87; PULSE 58; TEMP 97.6
[2024-05-27 06:57] LABS: ALBUMIN 2.3 g/dL (3.4-4.8); BILIRUBIN,TOTAL 0.4 mg/dL (0.2-1.2); CALCIUM 8.7 mg/dL (8.4-10.2); CREATININE, serum 1.01 mg/dL (0.72-1.25); MAGNESIUM 1.5 mg/dL (1.6-2.6); PHOSPHOROUS 3.3 mg/dL (2.3-4.7); TOTAL PROTEIN 5.3 g/dl (6.2-8.1)
[2024-05-27] MEDS ORDERED: PACERONE400 MG PO (07:40)
[2024-05-27] MEDS ORDERED: Magnesium Sulfate 4% 50 ML IV ONE (07:45)
[2024-05-27 08:30] VITALS: BP_SYST 135
[2024-05-27] MEDS ORDERED: Potassium Chloride 100 ML IV SCH (08:30)
[2024-05-27] MEDS ORDERED: ZESTRIL 20MG TA20 MG PO (08:53)
[2024-05-27] MEDS ORDERED: PHOSPHA 250 NEU1 TAB PO (08:54)
[2024-05-27] MEDS ORDERED: K-DUR20 MEQ PO (08:55)
[2024-05-27] MEDS ORDERED: MAG-OX 400400 MG/TAB PO (08:56)
[2024-05-27] MEDS ORDERED: CARAFATE 1GM1 G PO (08:57)
[2024-05-27] MEDS ORDERED: PEPCID 20MG TAB20 MG PO (08:57)
[2024-05-27 09:11] VITALS: BP 135/77; PULSE 60; TEMP 97.6
--- NOTE | 2024-05-27 12:41 | NUR ---
SW attended clinical rounds. Patient stable for discharge to home today. SW reviewed Medicare IM form with patient who voiced understanding and agreement with discharge and signed form. Original on chart, copy to patient. RAMON confirmed with [facility] that tube feed supplies and nutrition and home oxygen delivered on Monday. Portable tank in room for transport home. Discharge orders and clinical updates sent to [facility] with note to schedule visit to educate patient today. Family to transport. Discharge plan: Home with HH
[2024-05-27 12:45] VITALS: BP 160/83; PULSE 59; TEMP 97.8
--- NOTE | 2024-05-27 13:30 | NUR ---
PATIENT RIJ SUCCESFULLY REMVOED. PATIENT TOELRATED WELL. SITE MINIMALLY BLED. CALL NEIL COLIN, 30 MIN FLAT TIME BEGINNING. PATIENTS SPOUSE AT BEDSIDE.
--- NOTE | 2024-05-27 14:30 | NUR ---
RIJ REMOVAL SITE CDI .
--- NOTE | 2024-05-27 16:30 | NUR ---
PATEINT GIVEN DISCHARGE INSTRUCTIONS AND EDUCATION WITH HIS SON AT [facility]. PATEINT DENEIS ANY NEEDS OR COMPLAINTS. PATIENT DENIES ANY FURTHER QUESTIONS REGARDING HIS NEW MEDICATIONS, OR TUFE FEEDINGS. PATEINT WAS ASSISTED BY HIS SON AND ONE PCT TO DRESS.
[2024-06-04] MEDS ORDERED: TRANSDERM-0.5 MG/21 TD (12:40)
[2024-06-04] MEDS ORDERED: SYSTANE 0.4%-0.1 SOL OU (12:40)
[2024-06-04] MEDS ORDERED: DULCOLAX S10 MG/SUPP RC (12:40)
[2024-06-04] MEDS ORDERED: ATIVAN 1MG T1 MG/TAB PO (13:14)
[2024-06-04] MEDS ORDERED: FENTANYL 50MCG TD (13:14)
[2024-06-04] MEDS ORDERED: ROXANOL 20MG20 MG/ML SL (13:14)
== END 2024-05-27 17:27 | disposition home health service (06) | DRG 391 ==
LOC: COL.ER 13:31 → MEDICAL 14:50
PROVIDERS: Internal Medicine; Personal Emergency Response Attendant; Physician Assistant; Surgery; ADMIT Hospitalist
PROC: 02HV33Z Insertion of Infusion Device into Superior Vena Cava, Percutaneous Approach (ICD-10-PCS; 2024-05-17)
PROC: 0DH63UZ Insertion of Feeding Device into Stomach, Percutaneous Approach (ICD-10-PCS; principal; 2024-05-21 15:30)
DX: K20.80 Other esophagitis without bleeding (principal); E43 Unspecified severe protein-calorie malnutrition; J18.9 Pneumonia, unspecified organism; J96.01 Acute respiratory failure with hypoxia; I48.92 Unspecified atrial flutter; C79.9 Secondary malignant neoplasm of unspecified site; N17.9 Acute kidney failure, unspecified; I25.10 Atherosclerotic heart disease of native coronary artery without angina pectoris; T66.XXXA Radiation sickness, unspecified, initial encounter; J44.9 Chronic obstructive pulmonary disease, unspecified; I25.2 Old myocardial infarction; R13.10 Dysphagia, unspecified; G62.9 Polyneuropathy, unspecified; E83.42 Hypomagnesemia; E83.39 Other disorders of phosphorus metabolism; I10 Essential (primary) hypertension; E87.6 Hypokalemia; Z68.20 Body mass index [BMI] 20.0-20.9, adult; E78.5 Hyperlipidemia, unspecified; F17.290 Nicotine dependence, other tobacco product, uncomplicated; Z79.891 Long term (current) use of opiate analgesic; Z79.82 Long term (current) use of aspirin; Z79.01 Long term (current) use of anticoagulants; Z92.3 Personal history of irradiation; Z92.21 Personal history of antineoplastic chemotherapy
CPT/HCPCS: C1751; J0360; J0690; J1450; J1650; J1815; J2470; J2543; J2704; J3370; J3475; J3480; J7030; J7050; J7120; P9047; Q9967